=== PATIENT | male | born 1980 | race Caucasian/White ===

== ENCOUNTER 2020-10-24 12:00 | Emergency (ER) | payer SELFPAY ==
[~2020-10-24] VITALS: Ht 177.8 cm; Wt 73.1 kg
[~2020-10-24 12:00] MED LIST: BACTRIM DS1 TAB OR; FLEXERIL PO; FLEXERIL10 MG PO; GABAPENTIN400 M2 PO; IBUPROFEN600 MG PO; LORTAB 10 PO; LORTAB 5 OR; LORTAB5 PO; NAPROSYN500 MG PO; NO MEDS; ULTRAM50 M1 OR; VICODIN ES1 TAB OR; VICODIN HP1 TAB OR; ZANAFLEX4 MG PO; ZITHROMAX250 MG PO
[2020-10-24 12:43] LABS: ALBUMIN 4.3 g/dL (3.2-5.0); ALKALINE PHOSPHATASE 82 u/l (38-126); ANION GAP 14 (6-22 (CALC)); BUN 21 mg/dL (9-20); BUN/CREATININE RATIO 29 (12-20 (CALC)); CARBON DIOXIDE 22 mmol/l (22-30); CHLORIDE 104 mmol/l (95-108); CREATININE 0.7 mg/dL (0.7-1.3); GFR > 60 ML/MIN (>=60 (CALC)); GFR FOR AFR.AMER. > 60 ML/MIN (>=60 (CALC)); SGOT/AST 23 u/l (17-59); SODIUM 137 mmol/l (137-146); TOTAL PROTEIN 7.7 g/dL (6.3-8.2)
[2020-10-24 12:44] LABS: BILIRUBIN, TOTAL 0.8 mg/dL (0.0-1.4)
[2020-10-24 12:46] LABS: HEMATOCRIT 49.2 % (39.0-50.0); HEMOGLOBIN 14.7 g/dl (14.0-18.0); IMMATURE GRANULOCYTES 0.1 % (0.0-5.0); MEAN CORPUSCULAR HGB 29.5 pG CALC (26.0-32.0); MEAN CORPUSCULAR HGB CONC 29.9 g/dL CAL (32.0-36.0); NEUT# 9.22 thou/uL (1.82-7.42); RED BLOOD COUNT 4.98 mill/uL (4.70-6.10)
[2020-10-24 12:47] LABS: MEAN CELL VOLUME 98.8 fL CALC (80.0-100.0)
[2020-10-24] MEDS ORDERED: KEFLEX500 MG PO (13:17)
[2020-10-24 13:29] VITALS: BP 155/64
== END 2020-10-24 13:33 | disposition home or self-care (01) | DRG 603 ==
LOC: ED 12:00
DX: L03.113 Cellulitis of right upper limb (principal); F17.210 Nicotine dependence, cigarettes, uncomplicated